=== PATIENT | male | born 1975 | race Caucasian/White ===

== ENCOUNTER 2017-03-21 19:56 | Emergency (ER) | payer SELFPAY ==
[2017-03-21] MEDS ORDERED: Acetaminophen 325 MG Tab PO ONE (21:14)
--- NOTE | 2017-03-21 21:19 | EDM.PDOC ---
ED HPI GENERAL MEDICAL PROBLEM - General Chief Complaint: Headache Stated Complaint: PT HAS FEVER Time Seen by Provider: 03/21/17 20:59 Source of Information: Reports: Patient History Limitations: Reports: No Limitations - History of Present Illness INITIAL COMMENTS - FREE TEXT/NARRATIVE: HISTORY AND PHYSICAL: History of present illness: [41-year-old male no history of chronic headaches or intracranial abnormality now complaining of several day history of intermittent headaches. Patient is a type II diabetic is compliant with his medications. He is concerned his blood glucose might be elevated in potentially causing his headaches. Patient had recent dental extraction 2 days ago from his right mandible without complication and he only has minimal soreness in this area. He has no neurologic complaints facial changes speech changes or difficulty with strength coordination or use of extremities. No other complaints. waxing and waning nature headaches is gradual onset.] Review of systems: As per history of present illness and below otherwise all systems reviewed and negative. Past medical history: As per history of present illness and as reviewed below otherwise noncontributory. Surgical history: As per history of present illness and as reviewed below otherwise noncontributory. Social history: No reported history of drug or alcohol abuse. Family history: As per history of present illness and as reviewed below otherwise noncontributory. Physical exam: HEENT: Atraumatic, normocephalic, pupils reactive, negative for conjunctival pallor or scleral icterus, mucous membranes moist, throat clear, neck supple, nontender, trachea midline. Dental extraction site right mandible unremarkable appearing for his postprocedural state. No mass or fluctuance. Discharge no erythema or swelling .trace tenderness only Lungs: Clear to auscultation, breath sounds equal bilaterally, chest nontender. Heart: S1S2, regular, negative for clicks, rubs, or JVD. Abdomen: Soft, nondistended, nontender. Negative for masses or hepatosplenomegaly. Negative for costovertebral tenderness. Pelvis: Stable nontender. Genitourinary: Deferred. Rectal: Deferred. Extremities: Atraumatic, negative for cords or calf pain. Neurovascular unremarkable. Neuro: Awake, alert, oriented. Cranial nerves II through XII unremarkable. Cerebellum unremarkable. Motor and sensory unremarkable throughout. Exam nonfocal. Diagnostics: [CT of the head pending] Therapeutics: [] Impression: [] Plan: 41-year-old diabetic patient with no prior history of chronic headaches now with headache intermittent for days. He is well-appearing with a nonfocal neurologic exam. Patient is supple neck. He has no infectious prodrome. Discussed with patient will CT head as several day headache is unusual for him as he does not typically suffer from headaches at all. His dental extraction site is benign and appropriate for being [address] is negative no further workup or treatment be indicated the patient's blood glucose was unremarkable and just over 100. Vital signs are stable and will anticipate outpatient follow-up for reevaluation with primary care doctor in one to 2 days. Patient and agree with outpatient follow-up and strict return precautions will be given Definitive disposition and diagnosis as appropriate pending reevaluation and review of above. Headache Pain Score (Numeric/FACES): 6 - Related Data Allergies Allergy/AdvReac Type Severity Reaction Status Date / Time No Known Allergies Allergy Verified 03/21/17 20:14 Home Meds: Home Meds metFORMIN HCl [Metformin HCl] 1,000 mg PO BID 06/24/16 [History] glipiZIDE [Glipizide Xl] 5 mg PO DAILY 03/21/17 [History] Past Medical History - Past Health History Medical/Surgical History: Denies Medical/Surgical History HEENT History: Reports: None Cardiovascular History: Reports: None Respiratory History: Reports: None Gastrointestinal History: Reports: None Genitourinary History: Reports: None Musculoskeletal History: Reports: None Neurological History: Reports: None Psychiatric History: Reports: None Endocrine/Metabolic History: Reports: Diabetes, Type II Hematologic History: Reports: None Immunologic History: Reports: None Oncologic (Cancer) History: Reports: None Dermatologic History: Reports: None - Infectious Disease History Infectious Disease History: Reports: None - Past Surgical History Head Surgeries/Procedures: Reports: None Male Surgical History: Reports: None Neurological Surgical History: Reports: None Dermatological Surgical History: Reports: None Social & Family History - Family History Family Medical History: Noncontributory - Tobacco Use Smoking Status *Q: Current Every Day Smoker Years of Tobacco use: 20 Packs/Tins Daily: 0.5 - Recreational Drug Use Recreational Drug Use: No ED ROS GENERAL - Review of Systems Review Of Systems: See Below (per hpi) ED EXAM, GENERAL - Physical Exam Exam: See Below (per hpi) Course - Vital Signs Last Recorded V/S: Last Vital Signs Temp 36.3 C 03/21/17 20:11 Pulse 78 03/21/17 20:11 Resp 16 03/21/17 20:11 BP 131/84 03/21/17 20:11 Pulse Ox 97 03/21/17 20:11 - Orders/Labs/Meds Orders: Active Orders 24 hr Category Date Time Status Head wo Cont [CT] Stat Exams 03/21/17 21:14 Taken Labs: Laboratory Tests 03/21/17 Range/Units 20:10 POC Glucose 129 H (60-110) mg/dL Meds: Medications Discontinued Medications Generic Name Dose Route Start Last Admin Trade Name Torito PRN Reason Stop Dose Admin Acetaminophen 650 mg 03/21/17 21:14 03/21/17 21:41 Tylenol PO 03/21/17 21:15 650 mg NOW ONE Administration Departure - Departure Time of Disposition: 23:19 Disposition: Home, Self-Care 01 Condition: good Clinical Impression: Headache, Hyperglycemia due to type 2 diabetes mellitus - Discharge Information Referrals: PCP,None [Primary Care Provider] - Forms: ED Department Discharge Additional Instructions: Your glucose was minimally elevated essentially unremarkable today. Continue your oral diabetic medications as previously prescribed and observe a strict diabetic diet at all times. CAT scan was done to evaluate your headache since you do not typically have them. The results of this were unremarkable in your neurologic exam is normal sweats appropriate to have you follow-up with your primary care doctor in one to 2 days for reevaluation and further workup and treatment as needed. Return immediately for new severe or worsening symptoms - My Orders Last 24 Hours: My Active Orders 03/21/17 21:14 Head wo Cont [CT] Stat - Assessment/Plan Last 24 Hours: My Active Orders 03/21/17 21:14 Head wo Cont [CT] Stat
[2017-03-21 23:37] VITALS: BP 103/74
--- NOTE | 2017-03-22 11:49 | CT ---
EXAM DATE: 03/21/17 PATIENT'S AGE: 41 Patient: KELSY MUJICA Facility: [place], [place] Site . Site : [id number] Study: CT Head [id number]/[id number] 9:58:29 PM Ordering Physician: Christoph Mar Final Report: INDICATION: Head pain. TECHNIQUE: CT head without i.v. contrast. COMPARISON: 06/24/2016. FINDINGS: CSF spaces: Within normal limits for age. Brain parenchyma: The brain parenchyma is normal in appearance with preservation of the norton-white differentiation. No sign of mass, hemorrhage, or midline shift seen. Skull base and calvarium: Left sphenoid sinus disease. The mastoid air cells are clear. The visualized orbits are grossly unremarkable. No skull fractures are seen. IMPRESSION: 1. No acute abnormality. Left sphenoid sinus disease, unchanged from 06/24/[address] Dictated by Sergey Downey MD @ 03/21/2017 10:10:25 PM Dictated by: Sergey Downey MD @ 03/21/2017 22:10:30 (Electronic Signature) Report Signed by Proxy. [facility]ITAL[facility]ad
== END 2017-03-21 23:37 | disposition home or self-care (01) ==
LOC: MW.ED 19:56
DX: R51 Headache (principal); E11.65 Type 2 diabetes mellitus with hyperglycemia; F17.210 Nicotine dependence, cigarettes, uncomplicated; Z79.84 Long term (current) use of oral hypoglycemic drugs
CPT/HCPCS: 70450; 82962; 99284; A9270